=== PATIENT | female | born 1965 | race Caucasian/White ===

== ENCOUNTER 2016-11-15 10:51 | Emergency (ER) | payer OTHER ==
[~2016-11-15] VITALS: Ht 166.4 cm; Wt 63.0 kg
[2016-11-15 10:53] VITALS: BP 165/96; PULSE 78; RESP 20; TEMP 98.1; O2SAT 96
[2016-11-15 10:57] VITALS: BP 165/96; PULSE 78; RESP 20; TEMP 98.1; O2SAT 96
--- NOTE | 2016-11-15 11:01 | PD ---
Physical Exam Date Seen by Provider: Nov 15, 2016 Time Seen by Provider: 10:57 Narrative Patient seen in triage. Patient here for Complaints of Anxiety and stomach upset. Patient recently seen by PCP and Prescribed Lexapro. Patient concerned that no Medical Testing was performed. Has not contacted PCP or started Lexapro. Vital Signs Stable. Data Data Last Documented VS Vital Signs Date Time Temp Pulse Resp B/P Pulse Ox O2 Delivery O2 Flow Rate FiO2 11/15/16 10:53 98.1 78 20 165/96 96 Room Air [facility] Medical Record Reviewed: Yes Supervised Visit with AMADOR: Yes Differential Diagnosis Anxiety. Aggitation. Abdominal Upset. Narrative Course Patient seen in triage, and is stable to await bed placement. Condition: Stable Matthew Bear Nov 15, 2016 11:00
[2016-11-15] MEDS ORDERED: METO25TA3 PO (11:18)
[2016-11-15] MEDS ORDERED: SODIUM CHLOR 0.9% 1000 ML INJ 1,000 ML IV ONE (11:30)
[2016-11-15] MEDS ORDERED: SODIUM CHLORIDE 0.9% FLUSH 10 ML FLUSH IVF PRN (11:30)
--- NOTE | 2016-11-15 11:40 | PD ---
HPI Chief Complaint: Anxiety Time Seen by Provider: 11:06 Travel History International Travel<30 days: No Contact w/Intl Traveler<30days: No Traveled to known affect area: No History of Present Illness HPI Patient is a 51-year-old female with history of hypertension, anxiety who presents to emergency room with complaints of anxiety. Patient reports that she recently moved from [place] to [place] 6 months ago. Reports that she had a bunch of friends visit her last week and reports that they left on . Reports that after they left, she began to feel very depressed. Patient reports that she began feeling anxious, reports that she is feeling irritable, reports that she just feels sad. Patient denies suicidal or homicidal ideations, reports that she has history of anxiety and thinks that she may be depressed and having anxiety attacks. Patient reports that she did follow-up with her primary care doctor on Saturday, Dr. Mogran, reports that he started her on Lexapro. Patient reports that she took 1 pill and felt better but stopped taking her medications as she was concerned that he did not check labs on her including a thyroid study. Patient with no chest pain or shortness of breath, denies fevers or chills. Patient reports that she feels nauseous but has no abdominal pain, reports that overall she just doesn't feel right. Patient requesting a lab work this time. PFSH Past Medical History Diabetes: No Hypertension: Yes Tetanus Vaccination: > 5 Years Influenza Vaccination: No ?: Not Past Surgical History Hysterectomy: Yes Social History Alcohol Use: No Tobacco Use: No Substance Use: No Allergies-Medications (Allergen,Severity, Reaction): Coded Allergies: No Known Allergies (Unverified , 11/15/16) Reported Meds & Prescriptions Reported Meds & Active Scripts Active Reported Metoprolol Tartrate 25 Mg Tab 25 Mg PO BID Review of Systems General / Constitutional: No: Fever Eyes: No: Visual changes HENT: No: Headaches Cardiovascular: Positive: Palpitations, No: Chest Pain or Discomfort Respiratory: No: Shortness of Breath Gastrointestinal: No: Abdominal Pain Genitourinary: No: Dysuria Musculoskeletal: No: Pain Skin: No Rash Neurologic: No: Weakness Psychiatric: Positive: Anxiety, Depression, No: Suicidal Ideations, Substance Abuse, Homicidal Ideation Endocrine: No: Polydipsia Hematologic/Lymphatic: No: Easy Bruising Physical Exam Narrative GENERAL: No acute distress, nontoxic SKIN: Focused skin assessment warm/dry. HEAD: Atraumatic. Normocephalic. EYES: Pupils equal and round. No injection or drainage. ENT: No nasal bleeding or discharge. Mucous membranes pink and moist. NECK: Trachea midline. No JVD. CARDIOVASCULAR: Regular rate and rhythm. No murmur appreciated. RESPIRATORY: No accessory muscle use. Clear to auscultation. Breath sounds equal bilaterally. GASTROINTESTINAL: Abdomen soft, non-tender, nondistended. Hepatic and splenic margins not palpable. MUSCULOSKELETAL: No obvious deformities. No clubbing. No cyanosis. No edema. NEUROLOGICAL: Awake and alert. Normal speech. PSYCHIATRIC: Patient anxious on exam Data Data Last Documented VS Vital Signs Date Time Temp Pulse Resp B/P Pulse Ox O2 Delivery O2 Flow Rate FiO2 11/15/16 11:50 18 97 Room Air 11/15/16 11:13 84 11/15/16 10:57 98.1 165/96 Orders Electrocardiogram (11/15/16 11:16) Complete Blood Count With Diff (11/15/16 11:16) Comprehensive Metabolic Panel (11/15/16 11:16) Magnesium (Mg) (11/15/16 11:16) Ecg Monitoring (11/15/16 11:16) Iv Access Insert/Monitor (11/15/16 11:16) Oximetry (11/15/16 11:16) Sodium Chloride 0.9% Flush (Ns Flush) (11/15/16 11:30) Thyroid Stimulating Hormone (11/15/16 11:16) Sodium Chlor 0.9% 1000 Ml Inj (Ns 1000 M (11/15/16 11:30) Labs Laboratory Tests Test 11/15/16 11:45 White Blood Count 12.9 TH/MM3 Red Blood Count 4.72 MIL/MM3 Hemoglobin 14.5 GM/DL Hematocrit 42.5 % Mean Corpuscular Volume 89.9 FL Mean Corpuscular Hemoglobin 30.8 PG Mean Corpuscular Hemoglobin 34.2 % Concent Red Cell Distribution Width 13.2 % Platelet Count 312 TH/MM3 Mean Platelet Volume 8.5 FL Neutrophils (%) (Auto) 77.3 % Lymphocytes (%) (Auto) 17.3 % Monocytes (%) (Auto) 4.5 % Eosinophils (%) (Auto) 0.2 % Basophils (%) (Auto) 0.7 % Neutrophils # (Auto) 10.0 TH/MM3 Lymphocytes # (Auto) 2.2 TH/MM3 Monocytes # (Auto) 0.6 TH/MM3 Eosinophils # (Auto) 0.0 TH/MM3 Basophils # (Auto) 0.1 TH/MM3 CBC Comment DIFF FINAL Differential Comment Sodium Level 140 MEQ/L Potassium Level 3.8 MEQ/L Chloride Level 104 MEQ/L Carbon Dioxide Level 30.2 MEQ/L Anion Gap 6 MEQ/L Blood Urea Nitrogen 9 MG/DL Creatinine 0.81 MG/DL Estimat Glomerular Filtration 75 ML/MIN Rate Random Glucose 110 MG/DL Calcium Level 9.4 MG/DL Magnesium Level 2.2 MG/DL Total Bilirubin 0.6 MG/DL Aspartate Amino Transf 14 U/L (AST/SGOT) Alanine Aminotransferase 25 U/L (ALT/SGPT) Alkaline Phosphatase 92 U/L Total Protein 8.5 GM/DL Albumin 4.6 GM/DL Thyroid Stimulating Hormone 0.657 uIU/ML [address] [place] [address] Medical Decision Making Medical Screen Exam Complete: Yes Emergency Medical Condition: Yes Interpretation(s) EKG at 1157: NSR at 71bpm, qt/qtc: 385/407, no acute st or t wave changes Vital Signs Date Time Temp Pulse Resp B/P Pulse Ox O2 Delivery O2 Flow Rate FiO2 11/15/16 11:13 84 18 11/15/16 10:57 98.1 78 20 165/96 96 11/15/16 10:53 98.1 78 20 165/96 96 Room Air Differential Diagnosis Anxiety reaction, depression, adjustment reaction, hypothyroidism, electrolyte abnormality Narrative Course Patient is a 51-year-old female who presents to emergency room for evaluation of anxiety and depression. Patient reports that she has not been feeling well since her friends from [place] left her home on after 1 week visit from them. Patient reports that she has been feeling nauseous, has been feeling depressed and sad. She did follow up with her primary care doctor Saturday and was started on Lexapro, reports that she only took one dose of this medication when she decided to stop it and wait for second opinion. Patient concerned as her primary care doctor did not order any labs for her. Patient concerned that her thyroid studies might be abnormal. Patient here for lab work. Patient denies si/hi, patient does not want to see psych screener. Patient is anxious on exam, patient with history of anxiety. She reports that she has taken Klonopin in the past for anxiety but reports that her script so she did not take it. Plan to obtain IV. We'll give IV ativan to help with the anxiety. Labs as well as TSH ordered. Laboratory Tests Test 11/15/16 11:45 White Blood Count 12.9 TH/MM3 (4.0-11.0) Red Blood Count 4.72 MIL/MM3 (4.00-5.30) Hemoglobin 14.5 GM/DL (11.6-15.3) Hematocrit 42.5 % (35.0-46.0) Mean Corpuscular Volume 89.9 FL (80.0-100.0) Mean Corpuscular Hemoglobin 30.8 PG (27.0-34.0) Mean Corpuscular Hemoglobin 34.2 % Concent (32.0-36.0) Red Cell Distribution Width 13.2 % (11.6-17.2) Platelet Count 312 TH/MM3 (150-450) Mean Platelet Volume 8.5 FL (7.0-11.0) Neutrophils (%) (Auto) 77.3 % (16.0-70.0) Lymphocytes (%) (Auto) 17.3 % (9.0-44.0) Monocytes (%) (Auto) 4.5 % (0.0-8.0) Eosinophils (%) (Auto) 0.2 % (0.0-4.0) Basophils (%) (Auto) 0.7 % (0.0-2.0) Neutrophils # (Auto) 10.0 TH/MM3 (1.8-7.7) Lymphocytes # (Auto) 2.2 TH/MM3 (1.0-4.8) Monocytes # (Auto) 0.6 TH/MM3 (0-0.9) Eosinophils # (Auto) 0.0 TH/MM3 (0-0.4) Basophils # (Auto) 0.1 TH/MM3 (0-0.2) CBC Comment DIFF FINAL Differential Comment Sodium Level 140 MEQ/L (136-145) Potassium Level 3.8 MEQ/L (3.5-5.1) Chloride Level 104 MEQ/L (98-107) Carbon Dioxide Level 30.2 MEQ/L (21.0-32.0) Anion Gap 6 MEQ/L (5-15) Blood Urea Nitrogen 9 MG/DL (7-18) Creatinine 0.81 MG/DL (0.50-1.00) Estimat Glomerular Filtration 75 ML/MIN (>89) Rate Random Glucose 110 MG/DL (74-106) Calcium Level 9.4 MG/DL (8.5-10.1) Magnesium Level 2.2 MG/DL (1.5-2.5) Total Bilirubin 0.6 MG/DL (0.2-1.0) Aspartate Amino Transf 14 U/L (15-37) (AST/SGOT) Alanine Aminotransferase 25 U/L (10-53) (ALT/SGPT) Alkaline Phosphatase 92 U/L (45-117) Total Protein 8.5 GM/DL (6.4-8.2) Albumin 4.6 GM/DL (3.4-5.0) Thyroid Stimulating Hormone 0.657 uIU/ML 3rd Gen (0.358-3.740) Patient reevaluated, patient reports that she is feeling much better at this time. Patient requests work note for week off. Will follow-up with her primary care doctor for further scripts for benzodiazepines for anxiety. We'll give patient a copy of her lab work at discharge. Signs and symptoms of when to return to the emergency room was reviewed patient in detail. Diagnosis Primary Impression: Anxiety Patient Instructions: General Instructions Departure Forms: Tests/Procedures, Work Release Enter return to work date: Nov 22, 2016 Additional Instructions: Please give patient a copy of her lab work at discharge Please follow up with your primary care doctor Return to ER as needed Please do not take ativan while driving or operating heavy machinery Med/Other Pt SpecificInfo: Prescription(s) given Scripts Lorazepam (Ativan)0.5 Mg Tab0.5 Mg PO DAILY PRN (ANXIETY AND/OR AGITATION) #7 TAB Ref 0 Prov:Daphne Clancy DO 11/15/16 Disposition: 01 DISCHARGE HOME Condition: Stable Daphne Clancy DO Nov 15, 2016 11:40
[2016-11-15 11:50] VITALS: RESP 18; O2SAT 97
[2016-11-15 12:03] LABS: BASOPHIL # 0.1 TH/MM3 (0-0.2); BASOPHIL % 0.7 % (0.0-2.0); EOSINOPHIL % 0.2 % (0.0-4.0); HEMATOCRIT 42.5 % (35.0-46.0); HEMO FLAGS DIFF FINAL; LYMPH % 17.3 % (9.0-44.0); LYMPHOCYTE # 2.2 TH/MM3 (1.0-4.8); MEAN CELL VOLUME 89.9 FL (80.0-100.0); MEAN CORPUSCULAR HEMOGLOBIN 30.8 PG (27.0-34.0); MEAN CORPUSCULAR HGB CONC 34.2 % (32.0-36.0); MONO % 4.5 % (0.0-8.0); NEUT % 77.3 % (16.0-70.0); PLATELET COUNT 312 TH/MM3 (150-450); RED BLOOD COUNT 4.72 MIL/MM3 (4.00-5.30); RED CELL DISTRIBUTION WIDTH 13.2 % (11.6-17.2); WHITE BLOOD COUNT 12.9 TH/MM3 (4.0-11.0)
[2016-11-15 12:36] LABS: ALT (GPT) 25 U/L (10-53); ANION GAP 6 MEQ/L (5-15); AST (GOT) 14 U/L (15-37); BICARBONATE 30.2 MEQ/L (21.0-32.0); BLOOD UREA NITROGEN 9 MG/DL (7-18); CHLORIDE 104 MEQ/L (98-107); GLOMERULAR FILTRATION RATE 75 ML/MIN (>89); MAGNESIUM 2.2 MG/DL (1.5-2.5); POTASSIUM 3.8 MEQ/L (3.5-5.1); SODIUM (NA) 140 MEQ/L (136-145)
[2016-11-15 12:45] LABS: ALKALINE PHOSPHATASE 92 U/L (45-117); TOTAL BILIRUBIN ADULT 0.6 MG/DL (0.2-1.0)
[2016-11-15] MEDS ORDERED: LORA-392 PO (12:50)
[2016-11-15 13:47] VITALS: BP 157/93
--- NOTE | 2016-11-16 16:20 | EKG ---
Date Performed: 11/15/2016 Time Performed: 11:57:58 PTAGE: 51 years EKG: Sinus rhythm LOW QRS VOLTAGE IN PRECORDIAL LEADS BORDERLINE ECG NO PREVIOUS TRACING DOCTOR: Yoselyn Escalona Interpretating Date/Time 11/16/2016 16:19:38
== END 2016-11-15 13:58 | disposition home or self-care (01) ==
LOC: NEPC 10:51
DX: F41.9 Anxiety disorder, unspecified (principal); F32.9 Major depressive disorder, single episode, unspecified; R11.0 Nausea; R94.31 Abnormal electrocardiogram [ECG] [EKG]; I10 Essential (primary) hypertension
CPT/HCPCS: 80053; 83735; 84443; 85025; 93005; 96360; 96361; 99284; J7030